=== PATIENT | male | born 1935 | race Caucasian/White ===

== ENCOUNTER 2022-06-11 09:25 | Day surgery (SDC) | payer MEDICARE, OTHER ==
[2022-06-08 16:08] LABS: Hematocrit 39.3 % (39.6-49.0); Lymphocytes % 17.6 % (15.3-44.8); MCV 97.9 fL (80-100); RBC Red Blood Cell Count 4.02 M/uL (4.33-5.43)
[2022-06-08 16:26] LABS: SARS-CoV-2 Antigen Rapid Res Negative (Negative)
[2022-06-08 16:31] LABS: Potassium 4.7 mmol/L (3.5-5.1)
--- NOTE | 2022-06-08 16:46 | RAD REPORT ---
EXAM DESCRIPTION: Aundrea Pa And Lat (2 Views)06/08/2022 4:08 pm CLINICAL HISTORY: Preop COMPARISON: 2020 FINDINGS: 6 millimeter nodular opacity overlies left base. The remainder of the lungs appear clear. Heart is normal size IMPRESSION: 6 millimeter nodular opacity overlying the left lung base may represent a pulmonary nodu le, nipple shadow or confluence of vessels. It is recommended that the patient have frontal and oblique views of the chest with a left nipple mar ker for further evaluation . Alternatively, an unenhanced CT chest could be obtained
[~2022-06-11 09:25] MED LIST: FENTANYL CITR 100 MCG/2 ML ONE; LIDOCAINE 2% MPF 5 ML VIAL ONE; ONDANSETRON 4 MG/2 ML VIAL ONE; dexAMETHasone 4 MG/ML VIAL ONE; propofoL 200 MG/20 ML VIAL IV ONE
[2022-06-11] MEDS ORDERED: CEFAZOLIN SODIUM 1 GM/VIAL ONE (09:53)
[2022-06-11] MEDS ORDERED: Ringers Lactate 1,000 ML IV ONE (09:53)
[2022-06-11] MEDS ORDERED: BUPIVACAINE 0.5% PF 10 ML VIAL ONE ×2 (10:04→11:29)
[2022-06-11 10:08] VITALS: O2SAT 99
[2022-06-11] MEDS ORDERED: EPHEDRINE SULF 50 MG/ML VIAL ONE ×2 (11:10→11:17)
[2022-06-11] MEDS ORDERED: LIDOCAINE 2% MPF 5 ML VIAL ONE (11:17)
[2022-06-11] MEDS ORDERED: propofoL 200 MG/20 ML VIAL IV ONE (11:17)
[2022-06-11] MEDS ORDERED: FENTANYL CITR 100 MCG/2 ML ONE (11:17)
[2022-06-11] MEDS ORDERED: ONDANSETRON 4 MG/2 ML VIAL ONE (11:17)
[2022-06-11] MEDS ORDERED: dexAMETHasone 4 MG/ML VIAL ONE (11:17)
--- NOTE | 2022-06-11 11:39 | P.BOP ---
Preoperative diagnosis: infected tender back subQ mass Postoperative diagnosis: same plus large abscess Primary procedure: Excisional biopsy of infected tender back subQ mass 7x5 cm Electrical Cad Designer: Delmis Carroll (Yulia) Estimated blood loss: <20cc Specimen: mass with purulent fluid culture Findings: see dicta, infected mass with abscess Anesthesia: General Complications: None Drain(s): Other Transferred to: Recovery Room Condition: Good
--- NOTE | 2022-06-11 12:09 | OP ---
Date of Procedure: 06/11/2022 Surgeon: Reji Iyer MD Help Desk Support: Delmis Torres. Preoperative Diagnosis: Infected tender back subcutaneous mass. Postoperative Diagnosis: Infected tender back subcutaneous mass plus large abscess. Procedure: Excisional biopsy of infected tender back subcutaneous mass 7 x 5 cm. Estimated Blood Loss: Less than 20 cc. Specimen: Mass with purulent discharge and fluid. Findings: The patient has a large mass and when we opened that area, we noticed an extensive amount of purulent discharge present with abscess underneath the mass itself with erythema present consisten t with cellulitis and abscess, infected with the source of this infected mass. That abscess was denae gallegos and the mass was excised. Area was irrigated, but we have to let it close by secondary intention with packing. Complications: None. Indication: This is the case of an 87-year-old patient, who comes to us with a tender upper back mas s. Benefits, alternatives, and risks of excision fully explained, which include, but not limited to infection, bleeding, damage to adjacent structures, anesthesia complication, recurrence, [place] and even . He also understands this may not relieve any symptoms. He might need more than one surgical intervention. He understood, signed a consent. The area of concern was marked by me and the patient in the holding room. Procedure In Detail: The patient was brought to the operating room, placed in supine position. Anes thesia was done without complication. The patient was placed in lateral decubitus position with prop er protection. Back area was prepped and draped in the usual sterile fashion. A wedge incision was made on the skin since some skin is involved with this subcutaneous mass. When we went there removin g the mass, we noticed the patient has an abscess present underneath the area. Once we explored that mass, we noticed infected mass with purulent discharge. We were once again went around the mass its elf, removed the mass entirely. Some of the fascia and muscle have to come with the mass itself sinc e it was attached. The muscle seems not to be penetrated by it. The area was irrigated. Hemostasis was obtained. Local anesthesia was applied. This was left to close by secondary intention. So, we packed the area with wet-to-dry dressing and sterile dressings on top. The patient tolerated the pr ocedure well. The patient was sent to recovery in stable condition. HM/MODL Voice ID: [id number] Report ID: [id number]
--- NOTE | 2022-06-11 12:21 | DS ---
Diagnosis: Infected tender back subcutaneous mass. Procedure: Excisional biopsy of infected tender back subcutaneous mass. Disposition: Home. Activity: As tolerated. No lifting. Plan: [facility] He may change the dressings elliott orrow, but if he needed the help, he can wait until Saturday. It is going to be wet-to-dry saline, most likely he is going to need Home Health agency. Medications: Include Tylenol No. 3 q.4 hours p.r.n. pain, Bactrim DS p.o. b.i.d. KEYLA/DUYEN Voice ID: [id number] Report ID: [id number]
[2022-06-11 12:26] VITALS: BP 130/44; TEMP 96.4
--- NOTE | 2022-06-11 13:55 | EKG ---
Test Date: 2022-06-08 Test Time: 15:44:33 [employer]: JOEL MEASUREMENT RESULTS: Intervals: Rate: 52 FL: 432 QRSD: 102 QT: 406 QTc: 377 [place]: P: 68 FL: 432 QRS: -27 T: 87 INTERPRETIVE STATEMENTS: Sinus rhythm with 1st degree AV block with blocked premature atrial complexes Otherwise normal ECG No previous ECG available for comparison Electronically Signed On 06-11-22 13:48:42 CDT by Sukhi Diaz
== END 2022-06-11 12:15 | disposition home or self-care (01) ==
LOC: OR 09:25
PROVIDERS: ATTEND Surgery
PROC: 0JB70ZZ Excision of Back Subcutaneous Tissue and Fascia, Open Approach (ICD-10-PCS; principal; 2022-06-11 11:00)
DX: B43.2 Subcutaneous pheomycotic abscess and cyst (principal); L02.212 Cutaneous abscess of back [any part, except buttock and flank]; L03.312 Cellulitis of back [any part except buttock and flank]; Z20.822 Contact with and (suspected) exposure to COVID-19
CPT/HCPCS: 36415; 71046; 80048; 85025; 87070; 87075; 87205; 87811; 88304; 93005; J0690; J1100; J2405; J2704; J3010; J7120